=== PATIENT | female | born 1945 | race African-American/Black ===

== ENCOUNTER 2018-03-23 19:35 | Emergency (ER) | payer OTHER ==
[~2018-03-23] VITALS: Ht 165.1 cm; Wt 81.8 kg
[2018-03-24 03:49] VITALS: BP 140/85
== END 2018-03-24 03:54 | disposition home or self-care (01) ==
LOC: ER 21:39
DX: S83.91XA Sprain of unspecified site of right knee, initial encounter (principal); S60.222A Contusion of left hand, initial encounter; S60.221A Contusion of right hand, initial encounter; W01.0XXA Fall on same level from slipping, tripping and stumbling without subsequent striking against object, initial encounter; Y93.89 Activity, other specified; Y92.9 Unspecified place or not applicable; E03.9 Hypothyroidism, unspecified; M32.9 Systemic lupus erythematosus, unspecified; Z88.0 Allergy status to penicillin; M48.02 Spinal stenosis, cervical region; I67.82 Cerebral ischemia
CPT/HCPCS: 70450; 72125; 73120; 73560; 99284